=== PATIENT | female | born 1945 | race Caucasian/White ===

== ENCOUNTER → 2017-08-06 | Outpatient (CLI) | payer OTHER ==
[~2017-08-06] MED LIST: AMIODARONE HCL100 MG PO; APAP650 PO; BENADRYL25 MG PO; BENTYL 20 MG TA20 M1 PO; CLONAZEPAM 0.50.5 M1 PO; ELIQUIS5 MG PO; FAMOTIDINE20 MG PO; LEXAPRO20 MG PO; LIPITOR 20 MG T20 M1 PO; LISINOPRIL-HCT1 EAC1 PO; LISINOPRIL10 MG PO; LISINOPRIL2.5 MG PO; LOVASTATIN 20 M20 MG PO; MAXZIDE-25 MG1 EACH PO; METOPROLOL SUC100 MG PO; PREDNISONE 20 M20 M1 PO; PROTONIX40 M4 PO; REGLAN 10 MG TA10 MG PO; ZANTAC 150MG T150 MG PO
== END ==
LOC: ULTRA 07:31
DX: R10.11 Right upper quadrant pain (principal)

== ENCOUNTER 2017-08-23 08:46 | Inpatient (IN) | payer OTHER ==
[~2017-08-23] VITALS: Ht 157.5 cm; Wt 96.2 kg
--- NOTE | ~2017-08-23 | EKG ---
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
[2017-08-23 08:51] VITALS: BP 132/51
[2017-08-23 09:27] LABS: ABSOLUTE NEUTROPHILS 4.4 thou/uL (1.4-8.2); MCH 21.5 pg (26.0-34.0); MCHC 30.4 g/dL (28.0-37.0)
[2017-08-23 09:29] LABS: BASOPHILS 1.6 % (0.0-2.0); EOSINOPHILS 1.7 % (0.0-3.0); LYMPHOCYTES 19.9 % (24.0-44.0); MCV 70.7 fL (80.0-100.0); MONOCYTES 8.2 % (1.0-8.0); PLATELET COUNT 294 thou/uL (150-400); POLYS 68.6 % (36.0-66.0); RBC 2.59 mil/uL (4.20-5.00); RDW 16.5 % (10.5-14.5); WBC 6.4 thou/uL (4.0-11.0)
[2017-08-23 09:37] LABS: ANION GAP 10 mmol/L (7-16); BUN 27 mg/dL (7-18); CALCIUM 8.9 mg/dL (8.5-10.1); CHLORIDE 103 mmol/L (98-107); CO2 21 mmol/L (21-32); CREATININE 1.3 mg/dL (0.6-1.0); GLUCOSE 171 mg/dL (74-106); POTASSIUM 3.9 mmol/L (3.5-5.1); SODIUM 134 mmol/L (136-145)
[2017-08-23 09:39] LABS: HEMATOCRIT 18.3 % (37.0-47.0); HEMOGLOBIN 5.6 gm/dL (12.0-15.0)
[2017-08-23 09:46] LABS: TROPONIN-I < 0.04 ng/mL (<0.06)
[2017-08-23 10:29] LABS: ANISOCYTOSIS 1+; HYPOCHROMASIA 1+; MICROCYTES 1+
[2017-08-23 10:39] LABS: DIRECT BILIRUBIN 0.1 mg/dL (<0.1-0.3); TOTAL BILIRUBIN 0.5 mg/dL (<0.1-1.0); TOTAL PROTEIN 6.3 g/dL (6.4-8.2)
[2017-08-23 11:55] VITALS: BP 133/37
[2017-08-23 12:44] VITALS: BP 145/46
[2017-08-23 13:08] LABS: % SATURATION 4 % (20-39); IRON 20 ug/dL (50-170); TIBC 468 ug/dL (250-450)
[2017-08-23 13:09] VITALS: BP 154/47
[2017-08-23 13:36] LABS: FOLIC ACID 15.5 ng/mL (8.6-58.9)
[2017-08-23 15:22] VITALS: BP 133/48; BP 145/40
[2017-08-23] MEDS ORDERED: LIPITOR 20 MG T20 M1 PO (16:20)
[2017-08-23] MEDS ORDERED: METOPROLOL SUC100 MG PO (16:22)
[2017-08-23] MEDS ORDERED: REGLAN 10 MG TA10 MG PO (16:23)
[2017-08-23] MEDS ORDERED: MAXZIDE-25 MG1 EACH PO (16:23)
[2017-08-23] MEDS ORDERED: PROTONIX40 M4 PO (16:24)
[2017-08-23] MEDS ORDERED: ELIQUIS5 MG PO (16:25)
[2017-08-23] MEDS ORDERED: LEXAPRO20 MG PO (16:25)
[2017-08-23] MEDS ORDERED: LISINOPRIL10 MG PO (16:27)
[2017-08-23 19:52] VITALS: BP 142/40
[2017-08-23 21:01] LABS: HEMATOCRIT 22.8 % (37.0-47.0); HEMOGLOBIN 7.2 gm/dL (12.0-15.0)
[2017-08-24 03:24] LABS: HEMATOCRIT 20.3 % (37.0-47.0); MCH 22.4 pg (26.0-34.0); MCHC 31.3 g/dL (28.0-37.0); MCV 71.6 fL (80.0-100.0); RBC 2.84 mil/uL (4.20-5.00); RDW 17.3 % (10.5-14.5); WBC 6.7 thou/uL (4.0-11.0)
[2017-08-24 03:26] LABS: HEMOGLOBIN 6.4 gm/dL (12.0-15.0)
[2017-08-24 03:38] LABS: CALCIUM 8.8 mg/dL (8.5-10.1); CREATININE 1.1 mg/dL (0.6-1.0); POTASSIUM 4.2 mmol/L (3.5-5.1)
[2017-08-24 03:43] VITALS: BP 142/75; BP 156/45
[2017-08-24 04:48] VITALS: BP 142/55; BP 150/42
[2017-08-24 08:00] VITALS: BP 150/42
[2017-08-24 10:10] LABS: HEMATOCRIT 24.2 % (37.0-47.0); HEMOGLOBIN 7.5 gm/dL (12.0-15.0)
[2017-08-24 12:51] VITALS: BP 150/42
[2017-08-29] MEDS ORDERED: MAXZIDE-25 MG1 EACH PO (10:37)
[2017-08-29] MEDS ORDERED: ELIQUIS5 MG PO (10:38)
[2017-08-29] MEDS ORDERED: LISINOPRIL-HCT1 EAC1 PO (10:39)
[2017-08-29] MEDS ORDERED: BENADRYL25 MG PO (11:00)
== END 2017-08-24 13:18 | disposition home or self-care (01) | DRG 377 ==
LOC: ER 08:46 → EROBS 09:56 → 4W 09:56
PROVIDERS: Emergency Medicine; Hospitalist
PROC: 30233N1 Transfusion of Nonautologous Red Blood Cells into Peripheral Vein, Percutaneous Approach (ICD-10-PCS; principal; 2017-08-23)
DX: K92.2 Gastrointestinal hemorrhage, unspecified (principal); E43 Unspecified severe protein-calorie malnutrition; J44.9 Chronic obstructive pulmonary disease, unspecified; I10 Essential (primary) hypertension; K21.9 Gastro-esophageal reflux disease without esophagitis; Z96.649 Presence of unspecified artificial hip joint; Z96.659 Presence of unspecified artificial knee joint; D50.9 Iron deficiency anemia, unspecified; E78.00 Pure hypercholesterolemia, unspecified; I48.91 Unspecified atrial fibrillation; Z79.899 Other long term (current) drug therapy; Z86.718 Personal history of other venous thrombosis and embolism; Z88.6 Allergy status to analgesic agent; Z87.891 Personal history of nicotine dependence; Z86.711 Personal history of pulmonary embolism; Z80.59 Family history of malignant neoplasm of other urinary tract organ
CPT/HCPCS: 10045

== ENCOUNTER 2017-08-28 18:08 | Emergency (ER) | payer OTHER ==
[~2017-08-28] VITALS: Ht 157.5 cm; Wt 97.1 kg
--- NOTE | ~2017-08-28 | EKG ---
[address] [place] [address] ELECTROCARDIOGRAM REPORT Name: ROYAL SANCHEZ 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
[~2017-08-28 18:08] MED LIST changes: -AMIODARONE HCL100 MG PO; -APAP650 PO; -BENADRYL25 MG PO; -BENTYL 20 MG TA20 M1 PO; -CLONAZEPAM 0.50.5 M1 PO; -FAMOTIDINE20 MG PO; -LISINOPRIL-HCT1 EAC1 PO; -LISINOPRIL2.5 MG PO; -LOVASTATIN 20 M20 MG PO; -PREDNISONE 20 M20 M1 PO; -ZANTAC 150MG T150 MG PO
[2017-08-28] MEDS ORDERED: BENTYL 20 MG TA20 M1 PO (19:22)
[2017-08-28] MEDS ORDERED: ZANTAC 150MG T150 MG PO (19:22)
[2017-08-28] MEDS ORDERED: APAP650 PO (19:22)
[2017-08-28 19:52] LABS: HEMATOCRIT 24.5 % (37.0-47.0); HEMOGLOBIN 7.7 gm/dL (12.0-15.0); MCH 24.3 pg (26.0-34.0); MCHC 31.3 g/dL (28.0-37.0); MCV 77.7 fL (80.0-100.0); PLATELET COUNT 229 thou/uL (150-400); RBC 3.16 mil/uL (4.20-5.00); WBC 6.3 thou/uL (4.0-11.0)
[2017-08-28 20:10] LABS: ANION GAP 9 mmol/L (7-16); BUN 17 mg/dL (7-18); CALCIUM 8.5 mg/dL (8.5-10.1); CHLORIDE 107 mmol/L (98-107); CO2 24 mmol/L (21-32); CREATININE 0.9 mg/dL (0.6-1.0); GLUCOSE 122 mg/dL (74-106); POTASSIUM 3.8 mmol/L (3.5-5.1); SODIUM 140 mmol/L (136-145); TROPONIN-I < 0.04 ng/mL (<0.06)
[2017-08-28 20:15] LABS: ABSOLUTE NEUTROPHILS 3.5 thou/uL (1.4-8.2)
[2017-08-28 20:16] LABS: ANISOCYTOSIS 2+; HYPOCHROMASIA 1+; OVALOCYTES 1+; POLYCHROMASIA 1+; TEARDROPS OCCASIONAL
[2017-08-29] MEDS ORDERED: MAXZIDE-25 MG1 EACH PO (10:37)
[2017-08-29] MEDS ORDERED: ELIQUIS5 MG PO (10:38)
[2017-08-29] MEDS ORDERED: LISINOPRIL-HCT1 EAC1 PO (10:39)
[2017-08-29] MEDS ORDERED: BENADRYL25 MG PO (11:00)
== END 2017-08-28 21:09 | disposition home or self-care (01) ==
LOC: ER 18:08
PROVIDERS: Emergency Medicine
DX: R06.00 Dyspnea, unspecified (principal); I10 Essential (primary) hypertension; D64.9 Anemia, unspecified; Z86.718 Personal history of other venous thrombosis and embolism; Z96.641 Presence of right artificial hip joint; Z87.891 Personal history of nicotine dependence; Z88.2 Allergy status to sulfonamides

== ENCOUNTER → 2017-09-04 | Outpatient (CLI) | payer OTHER ==
[~2017-09-04] VITALS: Ht 157.5 cm; Wt 97.1 kg
[~2017-09-04] MED LIST changes: +APAP650 PO; +BENADRYL25 MG PO; +BENTYL 20 MG TA20 M1 PO; +CLONAZEPAM 0.50.5 M1 PO; +LISINOPRIL-HCT1 EAC1 PO; +ZANTAC 150MG T150 MG PO
--- NOTE | ~2017-09-04 | P ---
[facility] [place] [address] PROCEDURE REPORT Name: ROYAL SANCHEZ Room #: REG EDWARD Dominguez#: [id number] Admission: 09/04/17 Attend Phys: Onel Mayes Discharge: Date of : 45 Report #: [id number] THIS REPORT FOR: //name// CC: Onel Jaramillo DO DATE OF SERVICE: 09/04/2017 PROCEDURE PERFORMED: Upper endoscopy. HISTORY OF PRESENT ILLNESS: The patient is a 71-year-old female who was seen by our service in consultation on 08/23/2017 for significant anemia. The patient on admission had a hemoglobin of 5.6. She was transfused 2 units. 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 She had a colonoscopy 2 years ago that was negative per the patient at [facility]. She does report seeing blood at times in her stools. She is on a daily Protonix. Plan is for upper endoscopy. DESCRIPTION OF PROCEDURE: The risks and benefits of the procedure were explained to the patient, those risks including but not limited to bleeding, perforation and the risk of sedation. She understood these risks and gave informed consent. Sedation was given using propofol per anesthesia. Next, using a standard Twelixirinon upper endoscope, the scope was placed in the patient's mouth and advanced under direct vision through the esophagus, stomach and into the third portion of the duodenum. The esophagus was normal throughout. The GE junction was normal. Overall, the gastric mucosa was normal. The pylorus was normal and patent and the duodenal bulb, first and second portion. I advanced the scope into the third portion. This was also normal. No bleeding was noted. No ulcerations. No AVMs were seen. At this point, the scope was then withdrawn and the procedure terminated. The patient tolerated the procedure well. IMPRESSION: Normal upper endoscopy. RECOMMENDATIONS: We discussed proceeding with an M2 capsule next as an outpatient in the near future. Would continue to monitor hemoglobin closely and continue PPI therapy. Thank you for allowing me to participate in her care. By: [id number] Onel Rivera MD /nt
== END | disposition home or self-care (01) ==
LOC: GI 00:28
DX: D64.9 Anemia, unspecified (principal); I10 Essential (primary) hypertension; I48.91 Unspecified atrial fibrillation; E78.00 Pure hypercholesterolemia, unspecified; G47.33 Obstructive sleep apnea (adult) (pediatric); K21.9 Gastro-esophageal reflux disease without esophagitis; F41.8 Other specified anxiety disorders; F32.9 Major depressive disorder, single episode, unspecified; Z96.641 Presence of right artificial hip joint; Z96.653 Presence of artificial knee joint, bilateral; Z87.891 Personal history of nicotine dependence; Z98.890 Other specified postprocedural states; Z79.01 Long term (current) use of anticoagulants; Z91.040 Latex allergy status; Z88.2 Allergy status to sulfonamides; Z88.8 Allergy status to other drugs, medicaments and biological substances; Z79.899 Other long term (current) drug therapy
CPT/HCPCS: 62110; 62900

== ENCOUNTER → 2017-09-09 | Outpatient (CLI) | payer OTHER ==
[2017-09-09 13:20] VITALS: BP 154/41
[2017-09-09 14:15] VITALS: BP 151/40
== END ==
LOC: OPONC 06:23
DX: D64.9 Anemia, unspecified (principal)
CPT/HCPCS: 95000; 95113

== ENCOUNTER → 2017-09-11 | Outpatient (CLI) | payer OTHER ==
[2017-09-11 13:45] VITALS: BP 146/40
[2017-09-11 14:45] VITALS: BP 149/46
== END ==
LOC: OPONC 07:59
DX: D64.9 Anemia, unspecified (principal)
CPT/HCPCS: 95000; 95113

== ENCOUNTER 2018-08-30 22:22 | Emergency (ER) | payer OTHER ==
[~2018-08-30] VITALS: Ht 157.5 cm; Wt 96.6 kg
[~2018-08-30 22:22] MED LIST changes: +AMIODARONE HCL100 MG PO; +FAMOTIDINE20 MG PO; +LISINOPRIL2.5 MG PO; +LOVASTATIN 20 M20 MG PO; +PREDNISONE 20 M20 M1 PO
[2018-08-31 00:21] LABS: ABSOLUTE NEUTROPHILS 3.4 thou/uL (1.4-8.2); BASOPHILS 0.6 % (0.0-2.0); EOSINOPHILS 2.7 % (0.0-3.0); HEMATOCRIT 29.6 % (37.0-47.0); HEMOGLOBIN 9.6 gm/dL (12.0-15.0); LYMPHOCYTES 38.8 % (24.0-44.0); MCH 25.5 pg (26.0-34.0); MCHC 32.6 g/dL (28.0-37.0); MCV 78.2 fL (80.0-100.0); MONOCYTES 8.7 % (1.0-8.0); PLATELET COUNT 222 thou/uL (150-400); POLYS 49.2 % (36.0-66.0); RBC 3.78 mil/uL (4.20-5.00); RDW 15.6 % (10.5-14.5); WBC 6.8 thou/uL (4.0-11.0)
[2018-08-31 00:38] LABS: ANION GAP 12 mmol/L (7-16); BUN 26 mg/dL (7-18); CALCIUM 8.7 mg/dL (8.5-10.1); CHLORIDE 100 mmol/L (98-107); CO2 24 mmol/L (21-32); CREATININE 1.1 mg/dL (0.6-1.0); GLUCOSE 168 mg/dL (74-106); POTASSIUM 4.1 mmol/L (3.5-5.1); SODIUM 136 mmol/L (136-145)
[2018-08-31 00:39] LABS: APTT 26.3 Seconds (24.5-32.8); D-DIMER 0.69 ug/mLFEU (0.19-0.50); PROTIME 10.5 Seconds (9.3-11.4)
[2018-08-31 00:48] LABS: ALBUMIN 3.3 g/dL (3.4-5.0); MAGNESIUM 1.6 mg/dL (1.8-2.4); SGOT 16 U/L (15-37); SGPT 21 U/L (30-65); TOTAL BILIRUBIN 0.1 mg/dL (<0.1-1.0); TOTAL PROTEIN 6.4 g/dL (6.4-8.2); TROPONIN-I <0.06 ng/mL (<0.06)
[2018-08-31] MEDS ORDERED: TRAMADOL 50 MG50 MG PO (01:27)
[2018-08-31 01:57] VITALS: BP 135/60
== END 2018-08-31 01:57 | disposition home or self-care (01) ==
LOC: ER 22:22
PROVIDERS: Emergency Medicine
DX: M79.652 Pain in left thigh (principal); G89.29 Other chronic pain; G47.30 Sleep apnea, unspecified; I48.91 Unspecified atrial fibrillation; I10 Essential (primary) hypertension; E78.00 Pure hypercholesterolemia, unspecified; Z96.653 Presence of artificial knee joint, bilateral; Z96.641 Presence of right artificial hip joint; Z86.718 Personal history of other venous thrombosis and embolism; Z86.711 Personal history of pulmonary embolism; Z79.899 Other long term (current) drug therapy; Z88.1 Allergy status to other antibiotic agents; Z88.2 Allergy status to sulfonamides; Z88.6 Allergy status to analgesic agent; Z91.040 Latex allergy status; Z87.891 Personal history of nicotine dependence